=== PATIENT | male | born 1960 | race Two or more races ===

== ENCOUNTER 2022-09-11 22:52 | Inpatient (IN) | payer MEDICARE, OTHER ==
[~2022-09-11] VITALS: Ht 170.2 cm; Wt 83.0 kg
[2022-09-11] MEDS ORDERED: PROP10TA10 PO (23:53)
[2022-09-11] MEDS ORDERED: QUET100T PO (23:53)
[2022-09-11] MEDS ORDERED: OLAN10TA73 PO (23:53)
[2022-09-11] MEDS ORDERED: AMLO10TA59 PO (23:53)
[2022-09-11] MEDS ORDERED: POLY17PO4 PO (23:53)
[2022-09-12 00:40] VITALS: BP 127/87
[2022-09-12] MEDS ORDERED: ACETAMINOPHEN 325 MG TABLET PO PRN (00:45)
[2022-09-12] MEDS ORDERED: MAG HYDROX/AL HYDROX/SIMETH 30 ML LIQUID UDC PO PRN (00:45)
[2022-09-12] MEDS ORDERED: TEMAZEPAM 7.5 MG CAPSULE PO PRN (00:45)
[2022-09-12 07:51] VITALS: BP 123/84
[2022-09-12] MEDS: OLANZAPINE 2.5 MG TABLET PO SCH ×2 (12:47→17:05)
[2022-09-12 15:11] VITALS: BP 129/87
[2022-09-12] MEDS ORDERED: DOCUSATE SODIUM 100 MG CAPSULE PO SCH (17:00)
[2022-09-12] MEDS: DOCUSATE SODIUM 100 MG CAPSULE PO SCH (17:06)
[2022-09-12] MEDS: PROPRANOLOL HCL 10 MG TABLET PO SCH (17:10)
[2022-09-12 20:05] VITALS: BP 138/78
[2022-09-12] MEDS ORDERED: OLANZAPINE 2.5 MG TABLET PO SCH (21:00)
[2022-09-13 07:30] VITALS: BP 130/83
[2022-09-13 07:31] LABS: BILIRUBIN,TOTAL 0.4 mg/dL (0.2-1.0); CREATININE 0.9 mg/dL (0.6-1.3); POTASSIUM 4.2 mmol/L (3.5-5.1); TOTAL PROTEIN, SERUM 7.8 g/dL (6.4-8.2)
[2022-09-13] MEDS: AMLODIPINE 10 MG TABLET PO SCH (09:17)
[2022-09-13] MEDS: DOCUSATE SODIUM 100 MG CAPSULE PO SCH ×2 (09:18→16:54)
[2022-09-13] MEDS: OLANZAPINE 2.5 MG TABLET PO SCH ×3 (09:18→20:11)
[2022-09-13] MEDS: PROPRANOLOL HCL 10 MG TABLET PO SCH ×2 (09:18→17:14)
[2022-09-13] MEDS: MIRALAX 17 GM POWD.PACK PO SCH (09:19)
[2022-09-13 16:00] VITALS: BP 136/85
[2022-09-13 19:50] VITALS: BP 132/78
[2022-09-14 07:53] VITALS: BP 134/90
[2022-09-14] MEDS: DOCUSATE SODIUM 100 MG CAPSULE PO SCH ×2 (09:39→17:11)
[2022-09-14] MEDS: MIRALAX 17 GM POWD.PACK PO SCH (09:39)
[2022-09-14] MEDS: AMLODIPINE 10 MG TABLET PO SCH (09:40)
[2022-09-14] MEDS: OLANZAPINE 2.5 MG TABLET PO SCH ×3 (09:41→22:16)
[2022-09-14] MEDS: PROPRANOLOL HCL 10 MG TABLET PO SCH ×2 (09:43→17:13)
[2022-09-14 16:21] VITALS: BP 130/88
[2022-09-14 20:00] VITALS: BP 107/73
[2022-09-14] MEDS: LORAZEPAM 1 MG TABLET PO PRN (22:16)
[2022-09-15 08:17] VITALS: BP 130/88
[2022-09-15] MEDS: OLANZAPINE 2.5 MG TABLET PO SCH ×3 (08:52→20:54)
[2022-09-15] MEDS: DOCUSATE SODIUM 100 MG CAPSULE PO SCH ×2 (08:53→16:50)
[2022-09-15] MEDS: AMLODIPINE 10 MG TABLET PO SCH (08:53)
[2022-09-15] MEDS: PROPRANOLOL HCL 10 MG TABLET PO SCH ×2 (08:53→16:50)
[2022-09-15] MEDS: MIRALAX 17 GM POWD.PACK PO SCH (08:54)
[2022-09-15 16:05] VITALS: BP 108/71
[2022-09-15 19:51] VITALS: BP 132/70
[2022-09-15] MEDS: MAGNESIUM HYDROXIDE 30 ML LIQUID UDC PO PRN (20:55)
[2022-09-16 08:50] VITALS: BP 137/61
[2022-09-16] MEDS: DOCUSATE SODIUM 100 MG CAPSULE PO SCH ×2 (08:54→09:00)
[2022-09-16] MEDS: AMLODIPINE 10 MG TABLET PO SCH (08:55)
[2022-09-16] MEDS: MIRALAX 17 GM POWD.PACK PO SCH (08:55)
[2022-09-16] MEDS: OLANZAPINE 2.5 MG TABLET PO SCH ×2 (08:56→20:21)
[2022-09-16] MEDS: PROPRANOLOL HCL 10 MG TABLET PO SCH ×2 (08:59→16:49)
[2022-09-16] MEDS: OLANZAPINE 5 MG TABLET PO SCH ×2 (12:32→16:49)
[2022-09-16 16:42] VITALS: BP 126/77
[2022-09-16 20:09] VITALS: BP 123/76
[2022-09-16] MEDS: LORAZEPAM 1 MG TABLET PO PRN (20:21)
[2022-09-16] MEDS: MAGNESIUM HYDROXIDE 30 ML LIQUID UDC PO PRN (20:21)
[2022-09-17 08:12] VITALS: BP 111/75
[2022-09-17] MEDS: AMLODIPINE 10 MG TABLET PO SCH (08:47)
[2022-09-17] MEDS: PROPRANOLOL HCL 10 MG TABLET PO SCH ×2 (08:47→16:25)
[2022-09-17] MEDS: OLANZAPINE 5 MG TABLET PO SCH ×3 (08:48→16:26)
[2022-09-17] MEDS: MIRALAX 17 GM POWD.PACK PO SCH (08:48)
[2022-09-17] MEDS: DOCUSATE SODIUM 100 MG CAPSULE PO SCH ×2 (08:48→16:26)
[2022-09-17 16:00] VITALS: BP 127/80
[2022-09-17 19:49] VITALS: BP 116/75
[2022-09-17] MEDS: OLANZAPINE 2.5 MG TABLET PO SCH (21:31)
[2022-09-17] MEDS: LORAZEPAM 1 MG TABLET PO PRN (21:31)
[2022-09-17] MEDS: MAGNESIUM HYDROXIDE 30 ML LIQUID UDC PO PRN (21:31)
[2022-09-18 07:30] VITALS: BP 130/89
[2022-09-18] MEDS: DOCUSATE SODIUM 100 MG CAPSULE PO SCH ×2 (08:58→17:12)
[2022-09-18] MEDS: OLANZAPINE 5 MG TABLET PO SCH ×3 (08:58→17:12)
[2022-09-18] MEDS: AMLODIPINE 10 MG TABLET PO SCH (08:59)
[2022-09-18] MEDS: MIRALAX 17 GM POWD.PACK PO SCH (09:00)
[2022-09-18] MEDS: PROPRANOLOL HCL 10 MG TABLET PO SCH ×2 (09:00→17:12)
[2022-09-18] MEDS: OXCARBAZEPINE 150 MG TABLET PO SCH ×2 (12:08→17:12)
[2022-09-18 16:00] VITALS: BP 149/88
[2022-09-18] MEDS: OLANZAPINE 2.5 MG TABLET PO SCH (20:23)
[2022-09-18 21:59] VITALS: BP 120/65
[2022-09-19 08:00] VITALS: BP 129/83
[2022-09-19] MEDS: PROPRANOLOL HCL 10 MG TABLET PO SCH ×2 (08:20→17:16)
[2022-09-19] MEDS: AMLODIPINE 10 MG TABLET PO SCH (08:20)
[2022-09-19] MEDS: OLANZAPINE 5 MG TABLET PO SCH ×3 (08:21→17:15)
[2022-09-19] MEDS: MIRALAX 17 GM POWD.PACK PO SCH (08:21)
[2022-09-19] MEDS: OXCARBAZEPINE 150 MG TABLET PO SCH ×3 (08:21→17:14)
[2022-09-19] MEDS: DOCUSATE SODIUM 100 MG CAPSULE PO SCH ×2 (08:21→17:14)
[2022-09-19] MEDS: NUTRISOURCE FIBER 4 GM PACKET PO SCH (15:09)
[2022-09-19 16:00] VITALS: BP 131/68
[2022-09-19 20:00] VITALS: BP 128/84
[2022-09-19] MEDS: OLANZAPINE 2.5 MG TABLET PO SCH (20:17)
[2022-09-20 08:00] VITALS: BP 127/66
[2022-09-20] MEDS: DOCUSATE SODIUM 100 MG CAPSULE PO SCH ×2 (08:47→17:30)
[2022-09-20] MEDS: AMLODIPINE 10 MG TABLET PO SCH (08:47)
[2022-09-20] MEDS: OLANZAPINE 5 MG TABLET PO SCH ×3 (08:47→17:26)
[2022-09-20] MEDS: OXCARBAZEPINE 150 MG TABLET PO SCH ×2 (08:47→12:18)
[2022-09-20] MEDS: MIRALAX 17 GM POWD.PACK PO SCH (08:48)
[2022-09-20] MEDS: PROPRANOLOL HCL 10 MG TABLET PO SCH ×2 (08:49→17:29)
[2022-09-20] MEDS: NUTRISOURCE FIBER 4 GM PACKET PO SCH (08:50)
[2022-09-20] MEDS ORDERED: FLUOXETINE HCL 20 MG CAPSULE PO SCH (13:00)
[2022-09-20 16:19] VITALS: BP 129/81
[2022-09-20] MEDS: OXCARBAZEPINE 300 MG TABLET PO SCH (17:30)
[2022-09-20 20:00] VITALS: BP 108/63
[2022-09-20] MEDS: OLANZAPINE 2.5 MG TABLET PO SCH (20:22)
[2022-09-21 07:54] VITALS: BP 137/91
[2022-09-21] MEDS: OXCARBAZEPINE 300 MG TABLET PO SCH ×3 (08:32→16:11)
[2022-09-21] MEDS: PROPRANOLOL HCL 10 MG TABLET PO SCH ×2 (08:32→16:12)
[2022-09-21] MEDS: OLANZAPINE 5 MG TABLET PO SCH ×3 (08:32→16:11)
[2022-09-21] MEDS: DOCUSATE SODIUM 100 MG CAPSULE PO SCH ×2 (08:32→16:12)
[2022-09-21] MEDS: AMLODIPINE 10 MG TABLET PO SCH (08:33)
[2022-09-21] MEDS: NUTRISOURCE FIBER 4 GM PACKET PO SCH (08:33)
[2022-09-21] MEDS: MIRALAX 17 GM POWD.PACK PO SCH (08:33)
[2022-09-21] MEDS: FLUOXETINE HCL 20 MG CAPSULE PO SCH (12:28)
[2022-09-21 16:10] VITALS: BP 130/80
[2022-09-21 20:00] VITALS: BP 140/84
[2022-09-21] MEDS: MAGNESIUM HYDROXIDE 30 ML LIQUID UDC PO PRN (21:10)
[2022-09-21] MEDS: OLANZAPINE 2.5 MG TABLET PO SCH (21:10)
[2022-09-22] MEDS: OXCARBAZEPINE 300 MG TABLET PO SCH ×3 (08:36→16:22)
[2022-09-22] MEDS: MIRALAX 17 GM POWD.PACK PO SCH (08:36)
[2022-09-22] MEDS: DOCUSATE SODIUM 100 MG CAPSULE PO SCH ×2 (08:36→16:22)
[2022-09-22] MEDS: OLANZAPINE 5 MG TABLET PO SCH ×3 (08:37→16:22)
[2022-09-22] MEDS: PROPRANOLOL HCL 10 MG TABLET PO SCH ×2 (08:37→16:34)
[2022-09-22] MEDS: NUTRISOURCE FIBER 4 GM PACKET PO SCH (08:37)
[2022-09-22] MEDS: AMLODIPINE 10 MG TABLET PO SCH (08:37)
[2022-09-22 08:40] VITALS: BP 132/78
[2022-09-22] MEDS: FLUOXETINE HCL 20 MG CAPSULE PO SCH (12:14)
[2022-09-22 16:06] VITALS: BP 124/80
[2022-09-22 20:15] VITALS: BP 136/82
[2022-09-22] MEDS: OLANZAPINE 2.5 MG TABLET PO SCH (20:46)
[2022-09-23] MEDS: OXCARBAZEPINE 300 MG TABLET PO SCH ×3 (08:19→17:19)
[2022-09-23] MEDS: DOCUSATE SODIUM 100 MG CAPSULE PO SCH ×2 (08:19→17:19)
[2022-09-23] MEDS: OLANZAPINE 5 MG TABLET PO SCH ×3 (08:19→17:19)
[2022-09-23] MEDS: MIRALAX 17 GM POWD.PACK PO SCH (08:20)
[2022-09-23] MEDS: AMLODIPINE 10 MG TABLET PO SCH (08:20)
[2022-09-23] MEDS: PROPRANOLOL HCL 10 MG TABLET PO SCH ×2 (08:20→17:19)
[2022-09-23] MEDS: NUTRISOURCE FIBER 4 GM PACKET PO SCH (08:21)
[2022-09-23 08:32] VITALS: BP 154/92
[2022-09-23] MEDS: FLUOXETINE HCL 20 MG CAPSULE PO SCH (12:46)
[2022-09-23 16:22] VITALS: BP 116/83
[2022-09-23 19:54] VITALS: BP 132/76
[2022-09-23] MEDS: OLANZAPINE 2.5 MG TABLET PO SCH (23:00)
[2022-09-24 08:15] VITALS: BP_SYST 100; BP_SYST 144; BP_DIAS 50; BP_DIAS 83
[2022-09-24] MEDS: DOCUSATE SODIUM 100 MG CAPSULE PO SCH ×2 (08:26→16:42)
[2022-09-24] MEDS: OLANZAPINE 5 MG TABLET PO SCH ×3 (08:26→16:42)
[2022-09-24] MEDS: OXCARBAZEPINE 300 MG TABLET PO SCH ×3 (08:26→16:42)
[2022-09-24] MEDS: MIRALAX 17 GM POWD.PACK PO SCH (08:27)
[2022-09-24] MEDS: AMLODIPINE 10 MG TABLET PO SCH (08:27)
[2022-09-24] MEDS: PROPRANOLOL HCL 10 MG TABLET PO SCH ×2 (08:30→16:44)
[2022-09-24] MEDS: NUTRISOURCE FIBER 4 GM PACKET PO SCH (08:30)
[2022-09-24] MEDS: FLUOXETINE HCL 20 MG CAPSULE PO SCH (13:01)
[2022-09-24 14:30] LABS: HEMATOCRIT 39.1 % (36.7-47.1); MEAN CORPUSCULAR HEMOGLOBIN 31.1 uug (23.8-33.4); MEAN CORPUSCULAR VOLUME 91.3 fL (73.0-96.2); PLATELET COUNT (AUTO) 307 K/uL (152-348)
[2022-09-24 15:23] LABS: BILIRUBIN,TOTAL 0.2 mg/dL (0.2-1.0); CREATININE 0.9 mg/dL (0.6-1.3); TOTAL PROTEIN, SERUM 7.5 g/dL (6.4-8.2)
[2022-09-24 15:42] VITALS: BP 130/76
[2022-09-24 20:09] VITALS: BP 107/64
[2022-09-24] MEDS: OLANZAPINE 2.5 MG TABLET PO SCH (20:17)
[2022-09-25 08:01] VITALS: BP 134/74
[2022-09-25] MEDS: MIRALAX 17 GM POWD.PACK PO SCH (08:15)
[2022-09-25] MEDS: OLANZAPINE 5 MG TABLET PO SCH (08:16)
[2022-09-25] MEDS: DOCUSATE SODIUM 100 MG CAPSULE PO SCH (08:16)
[2022-09-25] MEDS: OXCARBAZEPINE 300 MG TABLET PO SCH (08:16)
[2022-09-25] MEDS: AMLODIPINE 10 MG TABLET PO SCH (08:16)
[2022-09-25 08:23] VITALS: BP 134/74
[2022-09-25] MEDS: PROPRANOLOL HCL 10 MG TABLET PO SCH (08:23)
[2022-09-25] MEDS: NUTRISOURCE FIBER 4 GM PACKET PO SCH (09:07)
== END 2022-09-25 11:45 | disposition home or self-care (01) | DRG 885 ==
LOC: ER 22:52 → GPS 23:15
PROVIDERS: ADMIT Psychiatry & Neurology Psychosomatic Medicine; ATTEND Internal Medicine
DX: F25.0 Schizoaffective disorder, bipolar type (principal); R45.851 Suicidal ideations; F42.9 Obsessive-compulsive disorder, unspecified; R45.850 Homicidal ideations; K59.00 Constipation, unspecified; Z88.0 Allergy status to penicillin; I10 Essential (primary) hypertension; E78.5 Hyperlipidemia, unspecified; Z91.14 Patient's other noncompliance with medication regimen; Z20.822 Contact with and (suspected) exposure to COVID-19; R41.9 Unspecified symptoms and signs involving cognitive functions and awareness
CPT/HCPCS: 36415; 85025